=== PATIENT | female | born 1975 | race African-American/Black ===

== ENCOUNTER 2018-01-02 17:15 | Emergency (ER) | payer OTHER ==
[2018-01-02 17:36] VITALS: RESP 18
[2018-01-02] MEDS ORDERED: DIPH,PERTUS(ACELL)TETVAC-LF 0.5 ML VIAL IM ONE (17:56)
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
[2018-01-02 18:41] LABS: Basophils % (A) 0 %; Eosinophils # (A) 0.1 k/uL (0-0.7); Eosinophils % (A) 1 %; HCT 37.9 % (34.0-46.0); HGB 12.1 gm/dL (11.4-16.0); Lymphocytes # (A) 0.9 k/uL (1.0-4.8); Lymphocytes % (A) 7 %; MCH 30.6 pg (25.0-35.0); MCHC 31.8 g/dL (31.0-37.0); MCV 96.4 fL (80.0-100.0); Mean Platelet Volume 6.8; Monocytes # (A) 0.6 k/uL (0-1.0); Monocytes % (A) 5 %; Neutrophils # (A) 10.2 k/uL (1.3-7.7); Neutrophils % (A) 85 %; Platelet Count 290 k/uL (150-450); RBC 3.94 m/uL (3.80-5.40)
[2018-01-02 18:57] LABS: Prothrombin Time 9.7 sec (9.0-12.0)
[2018-01-02 19:02] LABS: ALT 60 U/L (9-52); AST 73 U/L (14-36); Albumin 3.3 g/dL (3.5-5.0); Alkaline Phosphatase 100 U/L (38-126); Anion Gap 6 mmol/L; Blood Urea Nitrogen 3 mg/dL (7-17); Calcium 8.1 mg/dL (8.4-10.2); Carbon Dioxide 23 mmol/L (22-30); Chloride 108 mmol/L (98-107); Glucose 98 mg/dL (74-99); Potassium 4.1 mmol/L (3.5-5.1); Sodium 137 mmol/L (137-145); Total Bilirubin 0.5 mg/dL (0.2-1.3); Total Protein 6.9 g/dL (6.3-8.2)
[2018-01-02 19:04] LABS: Partial Thromboplastin Time 21.2 sec (22.0-30.0)
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
[2018-01-02] MEDS ORDERED: LIDOCAINE 1% INJ 10MG/ML (20 ML MDV) SQ ONE (19:29)
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
[2018-01-02] MEDS ORDERED: ONDANSETRON 4 MG/2 ML VIAL IVP STA (19:46)
[2018-01-02] MEDS ORDERED: MORPHINE SULFATE 4 MG/ML SYRINGE IVP STA (19:46)
[2018-01-02] MEDS ORDERED: ACET/COD 300 MG/30 MG STARTER PACK 6 TAB BTL PO STA (20:43)
[2018-01-02 21:32] VITALS: BP 108/61; PULSE 89; TEMP 98.2
== END 2018-01-02 21:32 | disposition home or self-care (01) ==
LOC: EC 17:15
DX: S06.0X0A Concussion without loss of consciousness, initial encounter (principal); S01.81XA Laceration without foreign body of other part of head, initial encounter; S20.211A Contusion of right front wall of thorax, initial encounter; Z23 Encounter for immunization; F31.9 Bipolar disorder, unspecified; F20.9 Schizophrenia, unspecified; Z79.899 Other long term (current) drug therapy; Z88.0 Allergy status to penicillin; Z88.2 Allergy status to sulfonamides; V49.40XA Driver injured in collision with unspecified motor vehicles in traffic accident, initial encounter; Y92.410 Unspecified street and highway as the place of occurrence of the external cause
CPT/HCPCS: 36415; 80053; 85025; 85610; 85730; 72125; 70450; 71260; 74177; 90715; 99285; 12015; 96374; 96375; 90471; J2270; J2405; Q9967; 12013

== ENCOUNTER → 2018-04-27 | Outpatient (CLI) | payer MEDICARE, OTHER | END | disposition home or self-care (01) | LOC: RADMRIMAIN 07:28 | PROVIDERS: ATTEND Family Medicine | DX: Z53.9 Procedure and treatment not carried out, unspecified reason (principal) ==

== ENCOUNTER → 2018-05-12 | Outpatient (CLI) | payer OTHER, MEDICARE | END | disposition home or self-care (01) | LOC: RADMRIMAIN 20:05 | PROVIDERS: ATTEND Family Medicine | DX: Z53.9 Procedure and treatment not carried out, unspecified reason (principal) ==

== ENCOUNTER → 2018-06-04 | Outpatient (CLI) | payer OTHER, MEDICARE ==
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
== END ==
LOC: RADUSWWP 14:20
PROVIDERS: ATTEND Family Medicine
DX: S70.12XA Contusion of left thigh, initial encounter (principal)

== ENCOUNTER 2018-07-10 08:40 | Day surgery (SDC) | payer OTHER, MEDICARE ==
[2018-07-10 09:03] VITALS: TEMP 98.3
[2018-07-10] MEDS ORDERED: ALPRAZolam 0.5 MG TAB PO ONE (09:14)
[2018-07-10 11:33] VITALS: BP 129/95; PULSE 81; RESP 14
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
== END 2018-07-10 11:05 | disposition home or self-care (01) ==
LOC: RADPROMAIN 08:40
PROVIDERS: ATTEND Surgery
DX: S70.12XA Contusion of left thigh, initial encounter (principal); X58.XXXA Exposure to other specified factors, initial encounter
CPT/HCPCS: 10030; 76942

== ENCOUNTER 2018-07-13 12:23 | Day surgery (SDC) | payer MEDICARE, OTHER ==
[2018-07-13 12:58] VITALS: BP 142/83; PULSE 61; RESP 14; TEMP 97.9
== END 2018-07-13 13:05 | disposition home or self-care (01) ==
LOC: RADPROMAIN 12:23
PROVIDERS: ATTEND Surgery
DX: Z48.00 Encounter for change or removal of nonsurgical wound dressing (principal)

== ENCOUNTER 2018-07-20 15:04 | Day surgery (SDC) | payer OTHER, MEDICARE ==
[2018-07-20 15:46] VITALS: BP 150/99; PULSE 73; RESP 14; TEMP 98.3
== END 2018-07-20 15:30 | disposition home or self-care (01) ==
LOC: RADPROMAIN 15:04
PROVIDERS: ATTEND Radiology Diagnostic Radiology
DX: Z48.00 Encounter for change or removal of nonsurgical wound dressing (principal)

== ENCOUNTER 2018-07-23 15:58 | Inpatient (IN) | payer OTHER, MEDICARE ==
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
[2018-07-23] MEDS ORDERED: VANCOMYCIN 2,000 MG in SODIUM CHLORIDE 0.9% 250 ML IVPB STA (16:29)
[2018-07-23] MEDS ORDERED: MORPHINE SULFATE 4 MG/ML SYRINGE IVP PRN (16:30)
[2018-07-23] MEDS ORDERED: VANCOMYCIN 2,500 MG in SODIUM CHLORIDE 0.9% 500 ML 500 ML IVPB STA (16:42)
[2018-07-23] MEDS ORDERED: CEFEPIME 2 GM in SODIUM CHLORIDE 0.9% 100 ML IVPB STA (16:46)
[2018-07-23] MEDS ORDERED: ONDANSETRON 4 MG/2 ML VIAL IVP STA (17:15)
[2018-07-23 17:17] LABS: Basophils % (A) 0 %; Eosinophils # (A) 0.3 k/uL (0-0.7); Eosinophils % (A) 3 %; HCT 35.8 % (34.0-46.0); HGB 10.8 gm/dL (11.4-16.0); Lymphocytes % (A) 7 %; MCH 27.6 pg (25.0-35.0); MCHC 30.1 g/dL (31.0-37.0); MCV 91.8 fL (80.0-100.0); Mean Platelet Volume 7.1; Monocytes # (A) 0.9 k/uL (0-1.0); Monocytes % (A) 7 %; Neutrophils # (A) 10.7 k/uL (1.3-7.7); Neutrophils % (A) 82 %; Platelet Count 293 k/uL (150-450); RDW 14.8 % (11.5-15.5); WBC 13.1 k/uL (3.8-10.6)
[2018-07-23 17:19] LABS: Anion Gap 7 mmol/L; Blood Urea Nitrogen 10 mg/dL (7-17); Calcium 8.9 mg/dL (8.4-10.2); Carbon Dioxide 23 mmol/L (22-30); Chloride 107 mmol/L (98-107); Glucose 114 mg/dL (74-99); Potassium 4.2 mmol/L (3.5-5.1); Sodium 137 mmol/L (137-145)
[2018-07-23] MEDS ORDERED: ONDANSETRON 4 MG/2 ML VIAL IVP PRN (18:56)
[2018-07-23] MEDS ORDERED: NALOXONE 0.4 MG/ML 1 ML VIAL IV PRN (18:56)
[2018-07-23] MEDS ORDERED: ACETAMINOPHEN TAB 325 MG TAB PO PRN (18:56)
[2018-07-23] MEDS: SODIUM CHLORIDE 0.9% 1,000 ML IV SCH (20:01)
[2018-07-23] MEDS: traZODone HCL 100 MG TAB PO SCH (22:24)
[2018-07-23] MEDS: LURASIDONE 40 MG TAB PO SCH (22:24)
[2018-07-23] MEDS: SERTRALINE 100 MG TAB PO SCH (22:24)
[2018-07-23] MEDS: buPROPion XL 300 MG TAB.ER.24H PO SCH (22:24)
[2018-07-23] MEDS: MORPHINE SULFATE 4 MG/ML SYRINGE IV PRN (22:25)
[2018-07-24] MEDS: MORPHINE SULFATE 4 MG/ML SYRINGE IV PRN ×3 (02:39→20:58)
[2018-07-24] MEDS: SODIUM CHLORIDE 0.9% 1,000 ML IV SCH ×2 (05:37→17:49)
[2018-07-24] MEDS: VANCOMYCIN 2,500 MG in SODIUM CHLORIDE 0.9% 500 ML 500 ML IVPB SCH ×2 (05:37→17:48)
[2018-07-24] MEDS: PANTOPRAZOLE 40 MG/10 ML VIAL IV SCH (08:27)
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
[2018-07-24] MEDS ORDERED: IV FLUID CONTINUATION 1,000 ML IV ONE (10:24)
[2018-07-24] MEDS ORDERED: SUCCINYLCHOLINE CHLORIDE VIAL 200 MG/10 ML VIAL IV ONE (10:43)
[2018-07-24] MEDS ORDERED: PROPOFOL 10 MG/ML 20 ML VIAL IV ONE (10:43)
[2018-07-24] MEDS ORDERED: MIDAZOLAM 2 MG/2 ML VIAL ONE (10:43)
[2018-07-24] MEDS ORDERED: LIDOCAINE 1% INJ 10MG/ML (20 ML MDV) ONE (10:43)
[2018-07-24] MEDS ORDERED: fentaNYL (PF) 50 MCG/ML 2 ML AMP ONE (10:43)
[2018-07-24] MEDS ORDERED: LACTATED RINGERS 1,000 ML IV ONE ×2 (11:16)
--- NOTE | 2018-07-24 11:55 | P.OP ---
Date of Procedure: 07/24/18 Procedure(s) Performed: PREOPERATIVE DIAGNOSIS: Infected left thigh hematoma POSTOPERATIVE DIAGNOSIS: Same PROCEDURE: Incision and drainage with biopsy infected left thigh hematoma SURGEON: Chalino EBL: Minimal ANESTHESIA: General COMPLICATIONS: None OPERATIVE PROCEDURE: Patient place in the operative table in the supine position. The patient was placed under general anesthesia. The patient's CAT scan guided drain site was prepped and draped in usual sterile fashion. A longitudinal incision was made inferior from the tube entrance site. Entrance into a deep hematoma cavity took place. The patient had purulent fluid encountered. Cultures were taken. The drain was removed. The incision was lengthened distally and slightly proximally as well. The hematoma cavity was irrigated with a Pulsavac. Any particulate matter was sent for permanent sectioning. I also removed and biopsied in a excisional manner any indurated areas of the margin of the hematoma cavity to rule out neoplastic changes. No bleeding was seen. The wound was then packed with 2.5 rolls of Kerlix. Sterile outer dressings applied. DISPOSITION: Stable to recovery room
[2018-07-24] MEDS: MORPHINE SULFATE 4 MG/ML SYRINGE IVP ONE ×2 (12:07→12:13)
[2018-07-24] MEDS ORDERED: LORazepam 2 MG/ML INJ IV PRN ×3 (13:18)
[2018-07-24] MEDS ORDERED: THIAMINE 100 MG/ML 2 ML VIAL IM STA (13:18)
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
[2018-07-24] MEDS: KETOROLAC 30 MG/ML 1 ML VIAL IVP SCH ×2 (16:16→17:48)
[2018-07-24 16:27] LABS: Basophils % (A) 0 %; Eosinophils # (A) 0.2 k/uL (0-0.7); Eosinophils % (A) 2 %; HCT 31.9 % (34.0-46.0); HGB 9.4 gm/dL (11.4-16.0); Hypochromasia Marked; Lymphocytes # (A) 0.8 k/uL (1.0-4.8); Lymphocytes % (A) 7 %; MCH 27.8 pg (25.0-35.0); MCHC 29.5 g/dL (31.0-37.0); MCV 94.2 fL (80.0-100.0); Mean Platelet Volume 6.7; Monocytes # (A) 0.8 k/uL (0-1.0); Monocytes % (A) 7 %; Neutrophils # (A) 9.4 k/uL (1.3-7.7); Neutrophils % (A) 83 %; Platelet Count 259 k/uL (150-450); RBC 3.39 m/uL (3.80-5.40); RDW 14.7 % (11.5-15.5); WBC 11.4 k/uL (3.8-10.6)
[2018-07-24 16:58] LABS: ALT 20 U/L (9-52); AST 15 U/L (14-36); Albumin 2.8 g/dL (3.5-5.0); Alkaline Phosphatase 75 U/L (38-126); Anion Gap 6 mmol/L; Blood Urea Nitrogen 8 mg/dL (7-17); Calcium 7.9 mg/dL (8.4-10.2); Carbon Dioxide 24 mmol/L (22-30); Chloride 107 mmol/L (98-107); Glucose 120 mg/dL (74-99); Potassium 4.1 mmol/L (3.5-5.1); Sodium 137 mmol/L (137-145); Total Bilirubin 0.4 mg/dL (0.2-1.3); Total Protein 6.1 g/dL (6.3-8.2)
[2018-07-24] MEDS: THIAMINE 100 MG TAB PO SCH (17:49)
[2018-07-24] MEDS: LURASIDONE 40 MG TAB PO SCH (20:52)
[2018-07-24] MEDS: SERTRALINE 100 MG TAB PO SCH (20:52)
[2018-07-24] MEDS: buPROPion XL 300 MG TAB.ER.24H PO SCH (20:52)
[2018-07-24] MEDS: traZODone HCL 100 MG TAB PO SCH (20:52)
[2018-07-25] MEDS: HEPARIN SODIUM,PORCINE 5,000 UNIT/ML 1 ML VIAL SQ SCH ×3 (00:46→17:28)
[2018-07-25] MEDS: KETOROLAC 30 MG/ML 1 ML VIAL IVP SCH ×4 (00:46→17:26)
[2018-07-25] MEDS: SODIUM CHLORIDE 0.9% 1,000 ML IV SCH ×3 (00:54→20:17)
[2018-07-25] MEDS: VANCOMYCIN 2,500 MG in SODIUM CHLORIDE 0.9% 500 ML 500 ML IVPB SCH ×2 (05:54→17:28)
[2018-07-25] MEDS: HYDROcodone/APAP 5-325MG 1 EACH TAB PO PRN (07:27)
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
[2018-07-25 09:15] LABS: Basophils % (A) 0 %; Eosinophils # (A) 0.1 k/uL (0-0.7); Eosinophils % (A) 1 %; HCT 33.1 % (34.0-46.0); HGB 9.9 gm/dL (11.4-16.0); Hypochromasia Marked; Lymphocytes # (A) 0.4 k/uL (1.0-4.8); Lymphocytes % (A) 6 %; MCH 28.4 pg (25.0-35.0); MCHC 29.8 g/dL (31.0-37.0); MCV 95.1 fL (80.0-100.0); Mean Platelet Volume 6.8; Monocytes # (A) 0.4 k/uL (0-1.0); Monocytes % (A) 5 %; Neutrophils # (A) 6.3 k/uL (1.3-7.7); Neutrophils % (A) 86 %; Platelet Count 270 k/uL (150-450); RBC 3.48 m/uL (3.80-5.40); RDW 14.6 % (11.5-15.5); WBC 7.3 k/uL (3.8-10.6)
[2018-07-25 09:28] LABS: ALT 20 U/L (9-52); AST 13 U/L (14-36); Albumin 2.9 g/dL (3.5-5.0); Alkaline Phosphatase 77 U/L (38-126); Anion Gap 9 mmol/L; Blood Urea Nitrogen 8 mg/dL (7-17); Calcium 7.9 mg/dL (8.4-10.2); Carbon Dioxide 22 mmol/L (22-30); Chloride 108 mmol/L (98-107); Glucose 152 mg/dL (74-99); Potassium 4.3 mmol/L (3.5-5.1); Sodium 139 mmol/L (137-145); Total Bilirubin 0.4 mg/dL (0.2-1.3); Total Protein 6.3 g/dL (6.3-8.2)
[2018-07-25] MEDS: PANTOPRAZOLE 40 MG/10 ML VIAL IV SCH (10:16)
--- NOTE | 2018-07-25 10:20 | P.PN ---
Progress Note - Text Progress Note Date: 07/25/18 Patient is doing well. Her wound dressings being changed by nursing staff. Patient feels well which to go home. On exam her vital signs are stable. Her wound is stable. Patiently discharged home. She'll be seen by Dr. Carr next week.
[2018-07-25] MEDS: THIAMINE 100 MG TAB PO SCH ×2 (13:40→17:28)
[2018-07-25] MEDS: MULTIVITAMINS, THERA 1 EACH TAB PO SCH (13:40)
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
[2018-07-25] MEDS: traZODone HCL 100 MG TAB PO SCH (20:20)
[2018-07-25] MEDS: LURASIDONE 40 MG TAB PO SCH (20:20)
[2018-07-25] MEDS: buPROPion XL 300 MG TAB.ER.24H PO SCH (20:20)
[2018-07-25] MEDS: SERTRALINE 100 MG TAB PO SCH (20:20)
--- NOTE | 2018-07-25 23:47 | PN ---
PROGRESS NOTE DATE OF SERVICE: 07/25/2018. REASON FOR FOLLOWUP: Left thigh infected hematoma. INTERVAL HISTORY: The patient is currently afebrile. She is breathing comfortably. Denies having any chest pain. Shortness of breath or cough. Still some pain in the left thigh, but no worsening. PHYSICAL EXAMINATION: Blood pressure is 140/81 with a pulse of 101, temperature 99.5. She is 92% on room air. General description is a middle-aged female lying in bed in no distress. Respiratory system: Unlabored breathing. Clear to auscultation anteriorly. Heart S1, S2. Regular rate and rhythm. Abdomen soft, no tenderness. Left thigh wound is currently dressed up. No obvious drainage on the dressing. LABS: Hemoglobin 9.8, white count 7.3, BUN of 8, creatinine of 0.70. The blood and left thigh cultures currently pending. DIAGNOSTIC IMPRESSION AND PLAN: Patient with left thigh infected hematoma, status post drainage. We are waiting for the culture to finalize. We will keep the patient on vancomycin as white count seems to have clinical improvement. Continue supportive care. MMODL / IJN: [id number] /
[2018-07-26] MEDS: HEPARIN SODIUM,PORCINE 5,000 UNIT/ML 1 ML VIAL SQ SCH ×3 (00:04→16:35)
[2018-07-26] MEDS: HYDROcodone/APAP 5-325MG 1 EACH TAB PO PRN ×4 (00:08→20:39)
[2018-07-26] MEDS ORDERED: VANCOMYCIN TROUGH DUE 1 EACH MISC MISCELLANE ONE (05:00)
[2018-07-26] MEDS: VANCOMYCIN 2,500 MG in SODIUM CHLORIDE 0.9% 500 ML 500 ML IVPB SCH ×2 (05:37→18:15)
[2018-07-26 06:05] LABS: Basophils % (A) 0 %; Eosinophils # (A) 0.2 k/uL (0-0.7); Eosinophils % (A) 2 %; HCT 32.5 % (34.0-46.0); HGB 9.8 gm/dL (11.4-16.0); Hypochromasia Slight; Lymphocytes # (A) 0.9 k/uL (1.0-4.8); Lymphocytes % (A) 10 %; MCHC 30.2 g/dL (31.0-37.0); MCV 92.9 fL (80.0-100.0); Mean Platelet Volume 6.8; Monocytes # (A) 0.9 k/uL (0-1.0); Monocytes % (A) 11 %; Neutrophils # (A) 6.5 k/uL (1.3-7.7); Neutrophils % (A) 75 %; Platelet Count 272 k/uL (150-450); RDW 14.7 % (11.5-15.5); WBC 8.6 k/uL (3.8-10.6)
[2018-07-26 06:16] LABS: ALT 26 U/L (9-52); AST 20 U/L (14-36); Albumin 2.9 g/dL (3.5-5.0); Alkaline Phosphatase 79 U/L (38-126); Anion Gap 6 mmol/L; Blood Urea Nitrogen 6 mg/dL (7-17); Calcium 7.9 mg/dL (8.4-10.2); Carbon Dioxide 25 mmol/L (22-30); Chloride 108 mmol/L (98-107); Glucose 93 mg/dL (74-99); Potassium 4.1 mmol/L (3.5-5.1); Sodium 139 mmol/L (137-145); Total Bilirubin 0.5 mg/dL (0.2-1.3); Total Protein 6.2 g/dL (6.3-8.2)
[2018-07-26] MEDS: PANTOPRAZOLE 40 MG/10 ML VIAL IV SCH (10:11)
[2018-07-26] MEDS: SODIUM CHLORIDE 0.9% 1,000 ML IV SCH ×2 (10:12→18:16)
--- NOTE | 2018-07-26 11:05 | P.PN ---
Progress Note - Text Progress Note Date: 07/26/18 The patient's complaints of incisional pain at the hematoma drainage site. On exam her vital signs are stable. Her left leg wound is stable. Patient will continue local wound care. We discussed with discharged home tomorrow.
[2018-07-26] MEDS ORDERED: LACTULOSE 20 GM/30 ML CUP PO ONE (12:58)
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
[2018-07-26] MEDS: THIAMINE 100 MG TAB PO SCH ×2 (13:22→16:35)
[2018-07-26] MEDS: MULTIVITAMINS, THERA 1 EACH TAB PO SCH (13:22)
[2018-07-26] MEDS: MORPHINE SULFATE 4 MG/ML SYRINGE IV PRN (16:35)
[2018-07-26] MEDS: traZODone HCL 100 MG TAB PO SCH (20:39)
[2018-07-26] MEDS: buPROPion XL 300 MG TAB.ER.24H PO SCH (20:39)
[2018-07-26] MEDS: LURASIDONE 40 MG TAB PO SCH (20:39)
[2018-07-26] MEDS: SERTRALINE 100 MG TAB PO SCH (20:39)
[2018-07-27] MEDS: HEPARIN SODIUM,PORCINE 5,000 UNIT/ML 1 ML VIAL SQ SCH ×3 (01:57→16:02)
[2018-07-27] MEDS: HYDROcodone/APAP 5-325MG 1 EACH TAB PO PRN ×5 (01:57→21:11)
[2018-07-27] MEDS: SODIUM CHLORIDE 0.9% 1,000 ML IV SCH ×3 (02:04→21:13)
--- NOTE | 2018-07-27 05:12 | PN ---
PROGRESS NOTE DATE OF SERVICE: 07/26/2018. REASON FOR FOLLOWUP: Left thigh infected hematoma. INTERVAL HISTORY: The patient is currently afebrile. She is breathing comfortably. The patient denies having any chest pain. No shortness of breath. No cough and no abdominal pain or any diarrhea. PHYSICAL EXAMINATION: Blood pressure 132/58 with a pulse of 82, temperature 99. She is 97% on room air. General description is a middle aged female lying in bed in no distress. Respiratory system: Unlabored breathing. Clear to auscultation anteriorly. Heart S1, S2 regular rate and rhythm. Abdomen soft, no tenderness. Left thigh wound significantly deep. However, the wound looks clean with no soft tissue swelling or redness. LABS: Hemoglobin 9.1, white count 8.6 with a BUN of 6, creatinine 0.66. Cultures have been negative so far. DIAGNOSTIC IMPRESSION AND PLAN: Patient with extensive left leg wound with concern for infected hematoma status post drainage. The wound looks clean. Culture negative. Currently on Vancomycin that will be transitioned to a short course of oral antibiotic. The patient would benefit from wound VAC to the left thigh wound. We will discuss with the director of casework services to arrange for the wound VAC on discharge. Continue supportive care. MMODL / IJN: [id number] /
[2018-07-27] MEDS: VANCOMYCIN 2,500 MG in SODIUM CHLORIDE 0.9% 500 ML 500 ML IVPB SCH ×2 (06:13→17:23)
[2018-07-27 07:44] LABS: Basophils % (A) 0 %; Eosinophils # (A) 0.2 k/uL (0-0.7); Eosinophils % (A) 3 %; HCT 31.8 % (34.0-46.0); HGB 9.5 gm/dL (11.4-16.0); Hypochromasia Slight; Lymphocytes # (A) 0.8 k/uL (1.0-4.8); Lymphocytes % (A) 11 %; MCH 27.8 pg (25.0-35.0); MCV 92.5 fL (80.0-100.0); Mean Platelet Volume 7.4; Monocytes # (A) 0.8 k/uL (0-1.0); Monocytes % (A) 11 %; Neutrophils # (A) 5.2 k/uL (1.3-7.7); Neutrophils % (A) 73 %; Platelet Count 322 k/uL (150-450); RBC 3.43 m/uL (3.80-5.40); RDW 14.7 % (11.5-15.5); WBC 7.1 k/uL (3.8-10.6)
[2018-07-27 07:53] LABS: ALT 38 U/L (9-52); AST 28 U/L (14-36); Albumin 2.9 g/dL (3.5-5.0); Alkaline Phosphatase 90 U/L (38-126); Anion Gap 8 mmol/L; Blood Urea Nitrogen 5 mg/dL (7-17); Calcium 7.9 mg/dL (8.4-10.2); Carbon Dioxide 24 mmol/L (22-30); Chloride 107 mmol/L (98-107); Glucose 84 mg/dL (74-99); Potassium 3.8 mmol/L (3.5-5.1); Sodium 139 mmol/L (137-145); Total Bilirubin 0.5 mg/dL (0.2-1.3); Total Protein 6.4 g/dL (6.3-8.2)
[2018-07-27] MEDS: THIAMINE 100 MG TAB PO SCH ×2 (09:11→16:02)
[2018-07-27] MEDS: PANTOPRAZOLE 40 MG/10 ML VIAL IV SCH (09:11)
[2018-07-27] MEDS: MULTIVITAMINS, THERA 1 EACH TAB PO SCH (09:11)
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
[2018-07-27] MEDS: IPRATROPIUM-ALBUTEROL 3 ML NEB INHALATION SCH ×4 (12:29→21:33)
--- NOTE | 2018-07-27 13:43 | XR ---
EXAMINATION TYPE: XR chest 2V DATE OF EXAM: 07/27/2018 COMPARISON: 11/18/2009 HISTORY: Shortness of breath TECHNIQUE: Frontal and lateral views of the chest are obtained. FINDINGS: Perihilar and right basilar patchy density may reflect developing infiltrate. Peribronchial thickenin g noted as well. No evidence for pneumothorax. No pleural effusion. The cardiac silhouette size is within normal limits. The osseous structures are grossly intact. IMPRESSION: 1. Perihilar and right basilar patchy density may reflect developing infiltrate. Peribronchial thick ening noted as well.
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
[2018-07-27 17:23] LABS: Iron Saturation 6.4 (12.00-45.00)
--- NOTE | 2018-07-27 17:54 | P.PN ---
Subjective Progress Note Date: 07/27/18 Principal diagnosis: Infected left leg hematoma Patient complaining of mild shortness of breath today. Denies significant pain in the leg. She is afebrile. Cultures noted. Objective - Vital Signs Vital signs: Vital Signs Temp 98.2 F 07/27/18 15:49 Pulse 82 07/27/18 15:49 Resp 16 07/27/18 15:49 BP 141/93 07/27/18 15:49 Pulse Ox 95 07/27/18 15:49 Intake & Output 07/26/18 07/27/18 07/27/18 18:59 06:59 18:59 Other: Voiding Method Toilet Toilet Toilet # Voids 2 2 1 - Exam Left leg wound site clean with minimal tenderness, no erythema - Labs CBC & Chem 7: 07/27/18 06:20 07/27/18 06:20 Labs: Abnormal Lab Results - Last 24 Hours (Table) 07/27/18 07/27/18 07/27/18 Range/Units 06:20 06:20 06:20 RBC 3.43 L (3.80-5.40) m/uL Hgb 9.5 L (11.4-16.0) gm/dL Hct 31.8 L (34.0-46.0) % MCHC 30.0 L (31.0-37.0) g/dL Lymphocytes # 0.8 L (1.0-4.8) k/uL BUN 5 L (7-17) mg/dL Calcium 7.9 L (8.4-10.2) mg/dL Iron 19 L (50-170) ug/dL Iron Saturation 6.40 L (12.00-45.00) Albumin 2.9 L (3.5-5.0) g/dL Microbiology - Last 24 Hours (Table) 07/23/18 16:54 Blood Culture - Preliminary Blood No Growth after 72 hours 07/24/18 11:54 Gram Stain - Final Leg - Left Wound Culture - Final 07/24/18 11:54 Anaerobic Culture - Preliminary Leg - Left Assessment and Plan (1) Traumatic hematoma of left lower leg with infection Narrative/Plan: From a wound standpoint patient improved. No fevers. Cultures noted. Will start wound VAC therapy once discharged. Today the patient was having some shortness of breath however. Workup for possible PE ongoing. Await those findings. Current Visit: Yes Status: Acute Code(s): S80.12XA - CONTUSION OF LEFT LOWER LEG, INITIAL ENCOUNTER; L08.9 - LOCAL INFECTION OF THE SKIN AND SUBCUTANEOUS TISSUE, UNSP SNOMED Code(s): 649445869
[2018-07-27] MEDS: LURASIDONE 40 MG TAB PO SCH (21:11)
[2018-07-27] MEDS: buPROPion XL 300 MG TAB.ER.24H PO SCH (21:11)
[2018-07-27] MEDS: SERTRALINE 100 MG TAB PO SCH (21:11)
[2018-07-27] MEDS: MONTELUKAST 10 MG TAB PO SCH (21:11)
[2018-07-27] MEDS: traZODone HCL 100 MG TAB PO SCH (21:11)
[2018-07-27] MEDS: BUDESONIDE 0.5 MG/2 ML NEBU INHALATION SCH (21:33)
[2018-07-27] MEDS: ALPRAZolam 0.5 MG TAB PO PRN (22:21)
[2018-07-27] MEDS: CEFEPIME 1 GM in SODIUM CHLORIDE 0.9% 50 ML IVPB SCH (22:21)
--- NOTE | 2018-07-27 22:21 | CT ---
EXAMINATION TYPE: CT angio chest DATE OF EXAM: 07/27/2018 COMPARISON: Prior CT chest January 02, 2018 HISTORY: Shortness of breath. CT DLP: 927.4 mGycm. Automated Exposure Control for Dose Reduction was Utilized. CONTRAST: CTA scan of the thorax is performed with IV Contrast, patient injected with 86ml mL of Isovue 370, pu lmonary embolism protocol. MIP Images are created on CT scanner and reviewed. FINDINGS: Exam is suboptimal secondary to patient's large body habitus. LUNGS: Small to tiny bilateral pleural effusions are present. There is associated compressive atelect asis in both bases with additional linear scarring and/or atelectasis present near diaphragms. Patchy groundglass opacity throughout bilateral lower lobes and lower lungs is consistent with mild alveola r edema and/or less likely infiltrates. No pneumothorax is seen bilaterally. MEDIASTINUM: There is satisfactory enhancement of the pulmonary artery and its branches, there is no CT evidence for pulmonary embolism. There are no greater than 1 cm hilar or mediastinal lymph nodes. No cardiomegaly or pericardial effusion is seen. Main pulmonary artery measures 3.1 cm at bifurcat ion, CT finding consistent with underlying pulmonary artery hypertension. OTHER: Visualized liver is hypodense consistent with fatty infiltration. There is mild multilevel ant erior spurring in the mid to lower thoracic spine. IMPRESSION: 1. No CT evidence for acute pulmonary embolism. 2. Correlate for fluid overload state as there are new small to tiny bilateral pleural effusions with suspected mild bilateral alveolar edema. Underlying acute bilateral lower lung infiltrates are not e xcluded but felt less likely. Correlate clinically.
[2018-07-28] MEDS: HEPARIN SODIUM,PORCINE 5,000 UNIT/ML 1 ML VIAL SQ SCH ×4 (00:34→21:57)
[2018-07-28] MEDS: HYDROcodone/APAP 5-325MG 1 EACH TAB PO PRN ×5 (02:29→21:06)
[2018-07-28] MEDS: VANCOMYCIN 2,500 MG in SODIUM CHLORIDE 0.9% 500 ML 500 ML IVPB SCH ×2 (05:28→17:19)
--- NOTE | 2018-07-28 07:09 | PN ---
PROGRESS NOTE DATE OF SERVICE: 07/27/2018. REASON FOR FOLLOWUP: Left thigh infected hematoma and a question of pneumonia. INTERVAL HISTORY: The patient is afebrile. She is breathing comfortably. The patient seemed to have a congested cough and shortness of breath. No nausea, no vomiting. No diarrhea. PHYSICAL EXAMINATION: On examination, blood pressure 137/60 with a pulse of 77, temperature 98.6. She is 96% on room air. General description is a middle aged female lying in bed in no distress. RESPIRATORY SYSTEM: Unlabored breathing with decreased breath sounds at bases. No wheeze. HEART: S1, S2. Regular rate and rhythm. ABDOMEN: Soft, no tenderness. LABS: Hemoglobin is 9.5, white count 7.1. BUN of 5, creatinine 0.61. The left leg culture has been negative so far. CT angiogram was negative for PE with a question of possible fluid overload. DIAGNOSTIC IMPRESSION AND PLAN: 1. Patient with left thigh hematoma, status post drainage. Culture has been negative. Currently vancomycin to transition to oral antibiotic on discharge. Local wound care with wound VAC. Once the wound VAC and her respiratory status stabilizes she will be able to go home from ID standpoint. 2. Patient with difficulty breathing, question of possible fluid overload, pneumonia less likely. Continue with supportive care. MMODL / IJN: [id number] /
[2018-07-28] MEDS: THIAMINE 100 MG TAB PO SCH ×2 (08:04→16:38)
[2018-07-28] MEDS: PANTOPRAZOLE 40 MG/10 ML VIAL IV SCH (08:04)
[2018-07-28] MEDS: MULTIVITAMINS, THERA 1 EACH TAB PO SCH (08:04)
[2018-07-28] MEDS: SODIUM CHLORIDE 0.9% 1,000 ML IV SCH ×2 (08:05→21:09)
[2018-07-28] MEDS: BUDESONIDE 0.5 MG/2 ML NEBU INHALATION SCH ×2 (08:35→20:26)
[2018-07-28 09:30] LABS: Basophils % (A) 0 %; Eosinophils # (A) 0.3 k/uL (0-0.7); Eosinophils % (A) 5 %; HCT 30.5 % (34.0-46.0); HGB 9.5 gm/dL (11.4-16.0); Hypochromasia Slight; Lymphocytes # (A) 0.9 k/uL (1.0-4.8); Lymphocytes % (A) 15 %; MCH 28.7 pg (25.0-35.0); MCHC 31.1 g/dL (31.0-37.0); MCV 92.2 fL (80.0-100.0); Mean Platelet Volume 7.3; Monocytes # (A) 0.6 k/uL (0-1.0); Monocytes % (A) 10 %; Neutrophils # (A) 4.2 k/uL (1.3-7.7); Neutrophils % (A) 69 %; Platelet Count 329 k/uL (150-450); RBC 3.31 m/uL (3.80-5.40); RDW 14.7 % (11.5-15.5); WBC 6.1 k/uL (3.8-10.6)
[2018-07-28] MEDS: CEFEPIME 1 GM in SODIUM CHLORIDE 0.9% 50 ML IVPB SCH ×2 (09:35→21:57)
[2018-07-28 09:44] LABS: ALT 38 U/L (9-52); AST 20 U/L (14-36); Albumin 2.8 g/dL (3.5-5.0); Alkaline Phosphatase 84 U/L (38-126); Anion Gap 6 mmol/L; Blood Urea Nitrogen 5 mg/dL (7-17); Carbon Dioxide 25 mmol/L (22-30); Chloride 108 mmol/L (98-107); Glucose 85 mg/dL (74-99); Potassium 3.5 mmol/L (3.5-5.1); Sodium 139 mmol/L (137-145); Total Bilirubin 0.3 mg/dL (0.2-1.3)
[2018-07-28] MEDS ORDERED: POTASSIUM CHLORIDE ER 20 MEQ TAB.ER PO STA (11:18)
[2018-07-28] MEDS: FUROSEMIDE 10 MG/ML 4 ML VIAL IV SCH ×2 (11:22→21:08)
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
[2018-07-28] MEDS: IPRATROPIUM-ALBUTEROL 3 ML NEB INHALATION SCH ×3 (12:26→20:26)
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
[2018-07-28] MEDS: FERROUS SULFATE 325 MG TAB PO SCH (16:38)
--- NOTE | 2018-07-28 16:46 | P.PN ---
Subjective Progress Note Date: 07/28/18 Principal diagnosis: Infected left leg hematoma Patient doing well today. Pain is improved. Shortness of breath also seems to be improved. Cultures remain negative. She is afebrile. Objective - Vital Signs Vital signs: Vital Signs Temp 98.4 F 07/28/18 07:41 Pulse 79 07/28/18 12:45 Resp 16 07/28/18 07:42 BP 144/83 07/28/18 07:41 Pulse Ox 95 07/28/18 12:26 Intake & Output 07/27/18 07/28/18 07/28/18 18:59 06:59 18:59 Intake Total 600 2590 Balance 600 2590 Intake: IV 1000 Sodium Chloride 0.9% 1, 1000 000 ml @ 100 mls/hr IV . Q10H [facility] Rx#:[id number] Intake, IV Titration 1050 Amount Cefepime 1 gm In Sodium 50 Chloride 0.9% 50 ml @ 100 mls/hr IVPB Q12HR [facility] Rx #:[id number] Vancomycin 2,500 mg In 1000 Sodium Chloride 0.9% 500 ml 500 ml @ 167 mls/hr IVPB Q12H [facility] Rx#: [id number] Oral 600 540 Other: Voiding Method Toilet Toilet # Voids 2 2 1 - Exam Abdomen: Soft, nontender Left thigh wound clean, minimal tenderness - Labs CBC & Chem 7: 07/28/18 07:45 07/28/18 07:45 Labs: Abnormal Lab Results - Last 24 Hours (Table) 07/27/18 07/28/18 07/28/18 Range/Units 06:20 07:45 07:45 RBC 3.31 L (3.80-5.40) m/uL Hgb 9.5 L (11.4-16.0) gm/dL Hct 30.5 L (34.0-46.0) % Lymphocytes # 0.9 L (1.0-4.8) k/uL Chloride 108 H (98-107) mmol/L BUN 5 L (7-17) mg/dL Calcium 8.0 L (8.4-10.2) mg/dL Iron 19 L (50-170) ug/dL Iron Saturation 6.40 L (12.00-45.00) Total Protein 6.0 L (6.3-8.2) g/dL Albumin 2.8 L (3.5-5.0) g/dL Microbiology - Last 24 Hours (Table) 07/24/18 11:54 Anaerobic Culture - Final Leg - Left 07/28/18 05:29 Gram Stain - Preliminary Sputum Sputum Culture - Preliminary 07/23/18 16:54 Blood Culture - Preliminary Blood No Growth after 96 hours Assessment and Plan (1) Traumatic hematoma of left lower leg with infection Narrative/Plan: Continue local wound care. Anticipate discharge tomorrow with outpatient wound VAC. Antibiotics per infectious disease. Current Visit: Yes Status: Acute Code(s): S80.12XA - CONTUSION OF LEFT LOWER LEG, INITIAL ENCOUNTER; L08.9 - LOCAL INFECTION OF THE SKIN AND SUBCUTANEOUS TISSUE, UNSP SNOMED Code(s): 169547154
[2018-07-28] MEDS: buPROPion XL 300 MG TAB.ER.24H PO SCH (21:07)
[2018-07-28] MEDS: MONTELUKAST 10 MG TAB PO SCH (21:07)
[2018-07-28] MEDS: LURASIDONE 40 MG TAB PO SCH (21:07)
[2018-07-28] MEDS: traZODone HCL 100 MG TAB PO SCH (21:08)
[2018-07-28] MEDS: SERTRALINE 100 MG TAB PO SCH (21:08)
[2018-07-28 21:21] VITALS: RESP 16
[2018-07-29 01:09] VITALS: TEMP 98.4
[2018-07-29] MEDS: HYDROcodone/APAP 5-325MG 1 EACH TAB PO PRN ×4 (01:25→15:55)
[2018-07-29] MEDS: ALPRAZolam 0.5 MG TAB PO PRN (03:30)
[2018-07-29] MEDS ORDERED: VANCOMYCIN TROUGH DUE 1 EACH MISC MISCELLANE ONE (05:00)
[2018-07-29] MEDS: VANCOMYCIN 2,500 MG in SODIUM CHLORIDE 0.9% 500 ML 500 ML IVPB SCH (05:54)
[2018-07-29 06:00] LABS: Basophils % (A) 0 %; Eosinophils # (A) 0.5 k/uL (0-0.7); Eosinophils % (A) 6 %; HCT 32.7 % (34.0-46.0); HGB 10.1 gm/dL (11.4-16.0); Lymphocytes # (A) 1.3 k/uL (1.0-4.8); Lymphocytes % (A) 15 %; MCH 28.2 pg (25.0-35.0); Mean Platelet Volume 6.8; Monocytes # (A) 0.5 k/uL (0-1.0); Monocytes % (A) 6 %; Neutrophils # (A) 5.8 k/uL (1.3-7.7); Neutrophils % (A) 70 %; Platelet Count 444 k/uL (150-450); RBC 3.59 m/uL (3.80-5.40); RDW 14.7 % (11.5-15.5); WBC 8.3 k/uL (3.8-10.6)
[2018-07-29 06:06] LABS: Anion Gap 7 mmol/L; Blood Urea Nitrogen 6 mg/dL (7-17); Calcium 8.6 mg/dL (8.4-10.2); Carbon Dioxide 29 mmol/L (22-30); Chloride 104 mmol/L (98-107); Glucose 91 mg/dL (74-99); Potassium 3.3 mmol/L (3.5-5.1); Sodium 140 mmol/L (137-145)
--- NOTE | 2018-07-29 06:58 | PN ---
PROGRESS NOTE DATE OF SERVICE: 07/28/2018 REASON FOR FOLLOWUP: Left thigh infected hematoma. INTERVAL HISTORY: The patient is currently afebrile. She is feeling better. Her breathing has improved. The patient denies having any chest pain. Denies any pain in the left thigh area with some drainage and no diarrhea. PHYSICAL EXAMINATION: On examination, blood pressure is 126/85 with a pulse of 98, temperature 98.5. She is 92% on room air. General description is a middle-aged female lying in bed in no distress. RESPIRATORY SYSTEM: Unlabored breathing, decreased breath sounds at the bases. No wheeze. HEART: S1, S2. Regular rate and rhythm. ABDOMEN: Soft, no tenderness. Left thigh wound is currently dressed up. No obvious drainage on the dressing. LABS: Hemoglobin 9.5, white count 6.1 with BUN of 5, creatinine 0.62. DIAGNOSTIC IMPRESSION AND PLAN: Patient with left thigh infected hematoma, status post drainage. culture remains to be negative. Patient currently on vancomycin to transition to short course of oral on discharge with local care to the left thigh with a wound VAC, which is currently also getting arranged. Continue supportive care. MMODL / IJN: [id number] /
[2018-07-29] MEDS: BUDESONIDE 0.5 MG/2 ML NEBU INHALATION SCH (07:42)
[2018-07-29] MEDS: IPRATROPIUM-ALBUTEROL 3 ML NEB INHALATION SCH ×2 (07:42→11:24)
[2018-07-29 07:50] VITALS: BP 98/63
[2018-07-29] MEDS ORDERED: Potassium Replacement Protocol 1 EACH MISC MISCELLANE PRN (08:35)
[2018-07-29] MEDS: HEPARIN SODIUM,PORCINE 5,000 UNIT/ML 1 ML VIAL SQ SCH (09:49)
[2018-07-29] MEDS: POTASSIUM CHLORIDE ER 20 MEQ TAB.ER PO SCH ×2 (09:50→11:16)
[2018-07-29] MEDS: MULTIVITAMINS, THERA 1 EACH TAB PO SCH (09:50)
[2018-07-29] MEDS: THIAMINE 100 MG TAB PO SCH (09:50)
[2018-07-29] MEDS: FERROUS SULFATE 325 MG TAB PO SCH (09:50)
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
[2018-07-29] MEDS: PANTOPRAZOLE 40 MG/10 ML VIAL IV SCH (11:16)
[2018-07-29] MEDS: CEFEPIME 1 GM in SODIUM CHLORIDE 0.9% 50 ML IVPB SCH (11:16)
[2018-07-29 11:35] VITALS: PULSE 80
--- NOTE | 2018-07-29 13:15 | P.DS ---
Providers Date of admission: 07/26/18 13:31 Expected date of discharge: 07/29/18 Attending physician: Julian Allred Consults: 07/23/18 18:56 Consult Physician Routine Consulting Provider: Timothy Orozco Consult Reason/Comments: medical consultation Do you want consulting provider notified?: Yes 07/24/18 11:44 Consult Physician Routine Consulting Provider: Penny Martinez Consult Reason/Comments: Infected thigh hematoma Do you want consulting provider notified?: Yes 07/27/18 15:03 Consult Physician Routine Consulting Provider: Mary Reza Consult Reason/Comments: cough, shortness of breath Do you want consulting provider notified?: Yes Primary care physician: Miriam Prabhakar - Discharge Diagnosis(es) (1) Traumatic hematoma of left lower leg with infection Patient minute last week with failure of outpatient therapy of her left leg hematoma. The patient's drain stopped draining and she was developing increased swelling and redness. Patient was taken to the operating for incision and drainage of this infected hematoma. Cultures actually have been negative thus far. She feels much better however. During her hospital stay the patient was having some shortness of breath issues. She was evaluated and seen by pulmonary. Apparently she is being cleared for discharge at this time. She has also been seen by infectious disease. They are managing her outpatient antibiotics. Will start wound care therapy using wound VAC once discharge. Patient will follow-up in 1-2 weeks. Current Visit: Yes Status: Acute Patient Condition at Discharge: Fair Plan - Discharge Summary Discharge Rx Participant: Yes New Discharge Prescriptions: No Action traZODone HCL [Desyrel] 100 mg PO HS buPROPion HCL [Wellbutrin XL] 300 mg PO HS Sertraline HCl [Zoloft] 100 mg PO HS Lurasidone [Latuda] 40 mg PO HS Butalb/APAP/Caff 50-325-40Mg [Fioricet 50-325-40] 1 tab PO BID PRN PRN Reason: Migraine Headache Ibuprofen [Motrin Ib] 400 mg PO Q6H Discharge Medication List Lurasidone [Latuda] 40 mg PO HS 01/02/18 [History] Sertraline HCl [Zoloft] 100 mg PO HS 01/02/18 [History] buPROPion HCL [Wellbutrin XL] 300 mg PO HS 01/02/18 [History] traZODone HCL [Desyrel] 100 mg PO HS 01/02/18 [History] Butalb/APAP/Caff 50-325-40Mg [Fioricet 50-325-40] 1 tab PO BID PRN 07/23/18 [ History] Ibuprofen [Motrin Ib] 400 mg PO Q6H 07/23/18 [History] Follow up Appointment(s)/Referral(s): [facility], [NON-STAFF] - As Needed Miriam Prabhakar DO [Primary Care Provider] - 07/30/18 2:00 pm Activity/Diet/Wound Care/Special Instructions: Wound vac ordered through [facility] #[phone] ext [phone]
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
[2018-07-29 15:52] VITALS: BMI 56.6
--- NOTE | 2018-07-29 16:13 | PN ---
PROGRESS NOTE DATE OF SERVICE: 07/29/2018 REASON FOR FOLLOWUP: Left thigh infected hematoma. INTERVAL HISTORY: The patient is currently afebrile. She is breathing more comfortably. Patient denies having any chest pain or cough. No abdominal pain and no diarrhea. PHYSICAL EXAMINATION: Blood pressure 98/63 with a pulse of 80, temperature 98.4. She is 98% on room air. General description is a middle-aged female, lying in bed in no distress. RESPIRATORY SYSTEM: Unlabored breathing. Clear to auscultation anteriorly. HEART: S1, S2. Regular rate and rhythm. ABDOMEN: Soft. No tenderness. LABS: The cultures have been negative so far. DIAGNOSTIC IMPRESSION AND PLAN: Patient with left thigh infected hematoma. Culture has been negative so far. She did well on vancomycin. That will be transitioned to oral doxycycline 100 mg b.i.d. for another 10 days. Prescription sent to the pharmacy. Local wound care with a wound V.A.C. and follow up in the wound care center next week. Continue supportive care. MMODL / IJN: [id number] /
== END 2018-07-29 16:49 | disposition home health service (06) | DRG 604 ==
LOC: EC 15:58 → 4SSUR 18:56 → OBSVTOIN 07-26 13:31
PROVIDERS: ADMIT Surgery; ATTEND Surgery
PROC: 0HBJXZX Excision of Left Upper Leg Skin, External Approach, Diagnostic (ICD-10-PCS; principal; 2018-07-26)
DX: S70.12XA Contusion of left thigh, initial encounter (principal); E43 Unspecified severe protein-calorie malnutrition; J45.21 Mild intermittent asthma with (acute) exacerbation; Z68.43 Body mass index [BMI] 50.0-59.9, adult; J81.1 Chronic pulmonary edema; E66.01 Morbid (severe) obesity due to excess calories; G47.33 Obstructive sleep apnea (adult) (pediatric); F41.1 Generalized anxiety disorder; L08.9 Local infection of the skin and subcutaneous tissue, unspecified; F10.10 Alcohol abuse, uncomplicated; F31.9 Bipolar disorder, unspecified; F41.9 Anxiety disorder, unspecified; D50.9 Iron deficiency anemia, unspecified; E87.6 Hypokalemia; K59.00 Constipation, unspecified; Z79.899 Other long term (current) drug therapy; Z88.0 Allergy status to penicillin; Z88.2 Allergy status to sulfonamides; Z87.891 Personal history of nicotine dependence; Z90.710 Acquired absence of both cervix and uterus
CPT/HCPCS: 36415; 71046; 71275; 80048; 80053; 80202; 81025; 82728; 83540; 83550; 85025; 87040; 87070; 87075; 87205; 88304; 94640; 94760; 96365; 96366; 96367; 96375; 99284

== ENCOUNTER 2022-05-10 17:20 | Emergency (ER) | payer OTHER, MEDICARE ==
[2022-05-10 18:10] VITALS: TEMP 98.9
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
[2022-05-10 19:43] LABS: Basophils % (A) 0 %; Eosinophils # (A) 0.2 k/uL (0-0.7); Eosinophils % (A) 2 %; HCT 43.7 % (34.0-46.0); HGB 14.3 gm/dL (11.4-16.0); Lymphocytes # (A) 1.7 k/uL (1.0-4.8); Lymphocytes % (A) 16 %; MCH 32.4 pg (25.0-35.0); MCHC 32.8 g/dL (31.0-37.0); MCV 98.9 fL (80.0-100.0); Mean Platelet Volume 7.8; Monocytes # (A) 0.5 k/uL (0-1.0); Monocytes % (A) 4 %; Neutrophils # (A) 7.9 k/uL (1.3-7.7); Neutrophils % (A) 76 %; Platelet Count 262 k/uL (150-450); RBC 4.42 m/uL (3.80-5.40); RDW 12.1 % (11.5-15.5); WBC 10.4 k/uL (3.8-10.6)
[2022-05-10 19:52] LABS: ALT 18 U/L (4-34); AST 44 U/L (14-36); African American GFR (CKD) >90 (>60 ml/min/1.73 sqM); Albumin 3.7 g/dL (3.5-5.0); Alkaline Phosphatase 57 U/L (38-126); Anion Gap 5 mmol/L; Blood Urea Nitrogen 10 mg/dL (7-17); Calcium 7.8 mg/dL (8.4-10.2); Carbon Dioxide 21 mmol/L (22-30); Chloride 109 mmol/L (98-107); Glucose 87 mg/dL (74-99); Non-African American GFR(CKD) 86 (>60 ml/min/1.73 sqM); Sodium 135 mmol/L (137-145); Total Bilirubin 1.1 mg/dL (0.2-1.3); Total Protein 6.4 g/dL (6.3-8.2)
[2022-05-10 20:10] LABS: Appearance,Urine Cloudy (Clear); Bacteria,Urine Rare /hpf; Bilirubin,Urine Negative (Negative); Blood,Urine Negative (Negative); Color,Urine Yellow; Glucose,Urine (UA) Negative (Negative); Ketones,Urine Negative (Negative); Leukocyte Esterase,Urine Negative (Negative); Mucus,Urine Occasional /hpf; Nitrite,Urine Negative (Negative); Protein,Urine Trace (Negative); RBC,Urine <1 /hpf (0-5); Specific Gravity,Urine 1.021 (1.001-1.035); Squamous Epithelial Cell,Urine 2 /hpf (0-4); Urobilinogen,Urine <2.0 mg/dL (<2.0)
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
--- NOTE | 2022-05-10 20:25 | XR ---
EXAMINATION TYPE: XR knee complete RT DATE OF EXAM: 05/10/2022 COMPARISON: None HISTORY: Knee pain TECHNIQUE: 3 views FINDINGS: There is no evidence of fracture nor dislocation. Joint spaces are normal. No pathologic calcificatio n. IMPRESSION: Negative right knee exam. No fracture.
--- NOTE | 2022-05-10 20:26 | XR ---
EXAMINATION TYPE: XR toes bilateral DATE OF EXAM: 05/10/2022 COMPARISON: NONE HISTORY: Pain TECHNIQUE: 3 views each toes. FINDINGS: I see no fracture nor dislocation. Joint spaces are normal. There are no erosions. No patho logic calcification. IMPRESSION: Negative bilateral toes exam. No fracture.
[2022-05-10 21:18] VITALS: BP 127/79; PULSE 93; RESP 18
== END 2022-05-10 21:18 | disposition home or self-care (01) ==
LOC: EC 17:20
DX: S30.1XXA Contusion of abdominal wall, initial encounter (principal); S80.01XA Contusion of right knee, initial encounter; J45.909 Unspecified asthma, uncomplicated; F17.290 Nicotine dependence, other tobacco product, uncomplicated; Z88.2 Allergy status to sulfonamides; Z88.0 Allergy status to penicillin; V89.2XXA Person injured in unspecified motor-vehicle accident, traffic, initial encounter; Y92.488 Other paved roadways as the place of occurrence of the external cause
CPT/HCPCS: 36415; 80053; 85025; 81001; 73660; 73562; 74177; 99284; Q9967

== ENCOUNTER 2022-10-28 15:50 | Emergency (ER) | payer MEDICARE, OTHER ==
[2022-10-28 15:57] VITALS: TEMP 97.9
--- NOTE | 2022-10-28 16:17 | XR ---
EXAMINATION TYPE: XR chest 2V DATE OF EXAM: 10/28/2022 COMPARISON: 07/27/2018 HISTORY: 47-year-old female upper respiratory symptoms, shortness of breath TECHNIQUE: PA and lateral views FINDINGS: Heart upper limits of normal in size. Multifocal patchy and interstitial opacities are present. No pl eural effusion. IMPRESSION: Diffuse interstitial and multifocal patchy airspace opacities. Correlate for possible etiologies incl uding patchy pulmonary edema, atypical pneumonia, hypersensitivity pneumonitis, interstitial pneumoni tis, or multifocal pneumonia.
[2022-10-28] MEDS ORDERED: ALBUTEROL HFA INHALER INHALATION STA (16:22)
[2022-10-28] MEDS ORDERED: methylPREDNISolone SOD SUCCI 125 MG/2 ML VIAL IM ONE (16:22)
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
[2022-10-28 18:06] VITALS: BP 142/87; PULSE 79; RESP 22
== END 2022-10-28 18:06 | disposition home or self-care (01) ==
LOC: EC 15:50
DX: J18.9 Pneumonia, unspecified organism (principal); J45.909 Unspecified asthma, uncomplicated; F41.9 Anxiety disorder, unspecified; F31.9 Bipolar disorder, unspecified; F17.290 Nicotine dependence, other tobacco product, uncomplicated; F12.90 Cannabis use, unspecified, uncomplicated; Z79.899 Other long term (current) drug therapy; Z88.0 Allergy status to penicillin; Z88.2 Allergy status to sulfonamides; Z20.822 Contact with and (suspected) exposure to COVID-19
CPT/HCPCS: 94640; 87636; 71046; 99285; 96372; J2930